=== PATIENT | male | born 1975 | race African-American/Black ===

== ENCOUNTER 2021-09-24 10:10 | Emergency (ER) | payer OTHER ==
[~2021-09-24] VITALS: Ht 182.9 cm; Wt 117.9 kg
[2021-09-24 10:31] LABS: ABSOLUTE EOSINOPHILS 0.2 thou/uL (0.0-0.7); ABSOLUTE MONOCYTES 0.5 thou/uL (0.0-1.2); ABSOLUTE NEUTROPHILS 8.2 thou/uL (1.6-8.1); BASOPHILS 0.4 %; EOSINOPHILS 1.9 %; HEMATOCRIT 46.2 % (42.0-52.0); HEMOGLOBIN 15.7 gm/dL (14.0-18.0); LYMPHOCYTES 9.9 %; MCH 29.1 pg (26.0-34.0); MCV 85.6 fL (80.0-100.0); MONOCYTES 4.9 %; MPV 10.3 fl. (7.2-11.1); NUCLEATED RBCS 0 /100WBC; PLATELET COUNT* 152 thou/uL (150-400); POLYS 82.9 %; RDW-CV 13.4 % (10.5-14.5); WBC 9.8 thou/uL (4.0-11.0)
[2021-09-24 10:40] LABS: CALCIUM 8.4 mg/dL (8.5-10.1); CREATININE 1.2 mg/dL (0.6-1.3); POTASSIUM 3.9 mmol/L (3.5-5.1)
[2021-09-24 10:45] LABS: ALBUMIN 4.2 g/dL (3.4-5.0); TOTAL BILIRUBIN 0.7 mg/dL (<0.1-1.0); TOTAL PROTEIN 8.2 g/dL (6.4-8.2)
--- NOTE | 2021-09-24 11:26 | EKG ---
[place] [address] ELECTROCARDIOGRAM REPORT Name: ASAD VALENTIN Room: [facility]#: [id number] Admission: 09/24/21 Attend Phys: Discharge: Date of : 79 Date of Service: 09/24/21 1034 Report #: [id number] THIS REPORT FOR: //name// [facility] ED Test Date: 2021-09-24 Test Time: 10:34:26 Pat Name: ASAD VALENTIN Department: Room: Gender: Event Mgr: CARLOS : 1975 Requested By: Laron Lozoya Order Number: [id number] MD: Daljit Bynum Measurements [address]vals [address] Rate: 97 P: 42 PA: 153 QRS: 18 QRSD: 85 T: 4 QT: 324 QTc: 412 Interpretive Statements Sinus rhythm Probable left atrial enlargement Probable left ventricular hypertrophy ST elev, probable normal early repol pattern No previous ECG available for comparison Electronically Signed On 09-24-2021 11:26:42 [employer] by Daljit Bynum [email or web address] <ELECTRONICALLY SIGNED> By: Daljit Bynum MD, [facility] 09/24/21 1126 1034 1034 Daljit Bynum MD, [facility] /EPI
[2021-09-24 12:16] VITALS: BP 121/60
== END 2021-09-24 12:16 | disposition home or self-care (01) ==
LOC: M.ERS 10:10
PROVIDERS: Family Medicine
DX: R10.13 Epigastric pain (principal); R11.2 Nausea with vomiting, unspecified; F90.9 Attention-deficit hyperactivity disorder, unspecified type; Z90.49 Acquired absence of other specified parts of digestive tract; Z98.890 Other specified postprocedural states